=== PATIENT | female | born 1935 | race Caucasian/White ===

== ENCOUNTER → 2017-02-24 | Outpatient (CLI) | payer MEDICARE, OTHER ==
[2017-02-24 10:02] LABS: ABSOLUTE BASOPHILS # (AUTO) 0.1 10^3/uL (0.0-0.2); ABSOLUTE EOSINOPHILS # (AUTO) 0.4 10^3/uL (0.0-0.6); ABSOLUTE LYMPHOCYTES (AUTO) 1.3 10^3/uL (0.5-4.7); ABSOLUTE MONOCYTES (AUTO) 0.6 10^3/uL (0.1-1.4); ABSOLUTE NEUT (AUTO) 6.1 10^3/uL (1.7-8.2); BASOPHILS % (AUTO) 1.3 % (0-2); EOSINOPHILS % (AUTO) 4.8 % (0-6); HEMATOCRIT 42.3 % (36.0-47.0); HEMOGLOBIN 14.4 g/dL (12.0-15.5); HGB HCT DIFFERENCE 0.9; LYMPHOCYTES % (AUTO) 14.8 % (13-45); MEAN CORPUSCULAR HEMOGLOBIN 28.3 pg (27.0-33.4); MEAN CORPUSCULAR HGB CONC 34.1 g/dL (32.0-36.0); MEAN CORPUSCULAR VOLUME 83 fl (80-97); MONOCYTES % (AUTO) 7.5 % (3-13); RED BLOOD COUNT 5.08 10^6/uL (3.72-5.28); RED CELL DISTRIBUTION WIDTH 14.2 % (11.5-14.0); SEGMENTED NEUTROPHILS % (AUTO) 71.6 % (42-78); WHITE BLOOD COUNT 8.5 10^3/uL (4.0-10.5)
[2017-02-24 10:07] LABS: APPEARANCE,URINE CLEAR; BILIRUBIN,URINE NEGATIVE (NEGATIVE); GLUCOSE, URINE NEGATIVE (NEGATIVE); KETONES,URINE NEGATIVE (NEGATIVE); LEUKOCYTE ESTERASE,URINE LARGE (NEGATIVE); NITRITE,URINE NEGATIVE (NEGATIVE); PROTEIN,URINE NEGATIVE (NEGATIVE); URINE SPECIFIC GRAVITY 1.012; UROBILINOGEN,URINE NEGATIVE mg/dL (<2.0)
[2017-02-24 10:21] LABS: ALANINE AMINOTRANSFERASE 30 U/L (9-52); ALBUMIN 4.5 g/dL (3.5-5.0); ALKALINE PHOSPHATASE 72 U/L (38-126); ANION GAP 13 (5-19); ASPARTATE AMINO TRANSFERASE 32 U/L (14-36); BILIRUBIN,DIRECT 0.3 mg/dL (0.0-0.4); BILIRUBIN,TOTAL 0.7 mg/dL (0.2-1.3); BLOOD UREA NITROGEN 17 mg/dL (7-20); CALCIUM 9.9 mg/dL (8.4-10.2); CARBON DIOXIDE 31 mmol/L (22-30); CHLORIDE 100 mmol/L (98-107); CHOLESTEROL 152.43 mg/dL (0-200); Direct HDL 42 mg/dL (>40); GLUCOSE 92 mg/dL (75-110); POTASSIUM 4.6 mmol/L (3.6-5.0); SODIUM 144.3 mmol/L (137-145); TOTAL PROTEIN 7.5 g/dL (6.3-8.2); TRIGLYCERIDES 225 mg/dL (<150)
[2017-02-24 10:32] LABS: DIRECT LDL 68 mg/dL (<100)
== END ==
LOC: OD 08:26
PROVIDERS: ATTEND Internal Medicine
DX: R00.2 Palpitations (principal); R06.02 Shortness of breath; I25.2 Old myocardial infarction; E78.4 Other hyperlipidemia; I10 Essential (primary) hypertension; E11.9 Type 2 diabetes mellitus without complications; I47.1 Supraventricular tachycardia; I47.9 Paroxysmal tachycardia, unspecified; I34.0 Nonrheumatic mitral (valve) insufficiency; Z79.899 Other long term (current) drug therapy; R53.83 Other fatigue; N39.0 Urinary tract infection, site not specified
CPT/HCPCS: 36415; 80053; 80061; 81001; 83036; 83880; 84443; 85025; 87086; 87088; 87186

== ENCOUNTER → 2017-10-19 | Outpatient (CLI) | payer MEDICARE ==
--- NOTE | 2017-10-19 18:38 | XCELERA REPORT ---
[address] [address] Transthoracic Echocardiogram Report Name: RICKEY MONTANO Age: 81 yrs Gender: Female : 1935 Patient Status: Outpatient Patient Location: Study Date: 10/19/2017 01:01 PM Height: 65 in Weight: 196 lb BSA: 2.0 m2 Procedure: A two-dimensional transthoracic echocardiogram with color flow and Doppler was performed. Study Quality: Technically suboptimal. Reason For Study: SOB History: Shortness of breath. Ordering Physician: ALIE DAHL Performed By: Kandi Palmer Interpretation Summary The left ventricle is normal in size. Probably no LVH. LV EF is >60% Left ventricular systolic function is normal. Doppler measurements suggest normal left ventricular diastolic function The left ventricular wall motion is normal. There is no thrombus. The right ventricle is grossly normal size. The right ventricle is not well visualized secondary to technical limitations The right atrium is normal. The left atrium is mildly dilated. There is no evidence of mitral valve prolapse. There is no vegetation seen on the mitral valve. Calcified mitral apparatus causing mitral stenosis. There is mild mitral stenosis There is no mitral regurgitation noted. There is no aortic valve stenosis There is no LVOT obstruction. Mild Aortic Sclerosis. There is a mild amount of aortic regurgitation There is no tricuspid stenosis. No tricuspid regurgitation. Cannot assess RVSP due to lack of tricuspid jet. The pulmonic valve is not well visualized. The aortic root is not well visualized. There is no pericardial effusion. MMode/2D Measurements & Calculations RVDd: 2.4 cm LVIDd: 4.4 cm FS: 32.6 % Ao root diam: IVSd: 1.8 cm LVIDs: 3.0 cm EDV(Teich): 3.6 cm LVPWd: 1.1 cm 87.8 ml Ao root area: ESV(Teich): 34.1 ml 10.0 cm2 EF(Teich): LA dimension: 61.2 % 4.5 cm LVOT diam: 2.2 cm LA A2Cs: LA A4Cs: LA length: 6.8 cm LVOT area: 3.9 cm2 33.5 cm2 34.8 cm2 LA Vol Index (BP): LA Volume: 146.4 ml 74.6 ml/m2 Doppler Measurements & Calculations MV E max monika: MV P1/2t max monika: Ao V2 max: AI max monika: 133.8 cm/sec 132.8 cm/sec 142.8 cm/sec 352.3 cm/sec MV A max monika: MV P1/2t: 70.1 msec Ao max PG: AI max P.4 cm/sec MVA(P1/2t): 3.1 cm2 8.2 mmHg 49.6 mmHg MV E/A: 1.5 MV dec slope: HAILEY(V,D): AI dec slope: 3.4 cm2 176.4 cm/sec2 554.5 cm/sec2 AI P1/2t: 585.1 msec LV V1 max PG: PA V2 max: 6.2 mmHg 116.5 cm/sec LV V1 max: PA max P.4 mmHg 124.4 cm/sec Left Ventricle The left ventricle is normal in size. Probably no LVH. LV EF is >60%. Left ventricular systolic function is normal. Doppler measurements suggest normal left ventricular diastolic function. The left ventricular wall motion is normal. There is no thrombus. Right Ventricle The right ventricle is grossly normal size. The right ventricle is not well visualized secondary to technical limitations. Atria The right atrium is normal. The left atrium is mildly dilated. Mitral Valve Calcified mitral apparatus causing mitral stenosis. There is no evidence of mitral valve prolapse. There is no vegetation seen on the mitral valve. There is mild mitral stenosis. There is no mitral regurgitation noted. Aortic Valve There is no aortic valvular vegetation. There is no aortic valve stenosis. There is no LVOT obstruction. Mild Aortic Sclerosis. There is a mild amount of aortic regurgitation. Tricuspid Valve There is no tricuspid stenosis. No tricuspid regurgitation. Cannot assess RVSP due to lack of tricuspid jet. Pulmonic Valve The pulmonic valve is not well visualized. Great Vessels The aortic root is not well visualized. Effusions There is no pericardial effusion. : ALIE DAHL > Alie Dahl
== END ==
LOC: SP 12:42
PROVIDERS: ATTEND Specialist
DX: R06.02 Shortness of breath (principal)
CPT/HCPCS: 93306

== ENCOUNTER → 2017-10-27 | Outpatient (CLI) | payer MEDICARE, OTHER ==
[~2017-10-27] MED LIST: REGADENOSON INJ 0.4 MG/5 ML DISP.SYRIN IV ONE
--- NOTE | 2017-10-30 14:49 | DRAGON STRESS TEST REPORT ---
Intravenous Lexiscan Cardiolite stress test using single photon emmision computerized tomography. Date of procedure: 10/27/2017. Ordering Provider: Dr. Alie Villarreal. Patient's status: Out Patient Indication: Coronary artery disease, and abnormal EKG.. Coronary risk factors: Age, diabetes mellitus, and hypertension Resting EKG: Sinus Rhythm. LVH with strain pattern. Possible lateral wall ischemia. Stress EKG: No changes of ischemia. The patient had no chest pain or discomfort, and there were no arrhythmias seen. Reason for termination: Protocol. Conclusions: Normal EKG and hemodynamic response to IV Lexiscan. Nuclear data: At rest the patient was given 13.5 for millicuries of technetium 99m sestamibi injected intravenously. As per protocol rest non gated SPECT images were obtained. Subsequently the patient was given intravenous Lexiscan at a dose of 0.4 mg in 5 mL intravenously, followed by flush with normal saline. Subsequently the stress dose of 43.1 millicuries of technetium 99m sestamibi was injected intravenously. As per protocol stress gated images were obtained. Nuclear interpretation: Review of images showed that there is a perfusion defect involving part of the inferoseptum and the rest and stress images. This area is normal motion contraction and thickening by gated study. And hence this is soft tissue attenuation artifact. Also there is a perfusion defect involving the distal lateral wall in both the rest and stress images. This area also has normal motion contraction and thickening by gated study. The rest of the segments of the myocardium had normal perfusion at rest, and normal perfusion post stress with IV Lexiscan. All segments of the myocardium had normal motion, contraction, and thickening by gated study. T. I D. ratio was normal at 1.18. Computer read rest, and stress left ventricular ejection fraction were 53 %, and 48 %, respectively. Visually both the stress and rest ejection fractions were normal, and greater than 55%. Conclusion: 1. There is no scintigraphic evidence of Lexiscan induced myocardial ischemia. 2. There is no scintigraphic evidence of myocardial infarction/scar. 3. There is soft tissue attenuation artifact of the distal lateral wall and part of the inferoseptum. Recommendations: Aggressive risk factor modification, and treating the underlying co- morbidities. [facility]
== END ==
LOC: RAD 06:43
PROVIDERS: ATTEND Specialist
DX: I25.10 Atherosclerotic heart disease of native coronary artery without angina pectoris (principal)
CPT/HCPCS: 93017; 78452; A9500; J2785; Q9969

== ENCOUNTER 2017-11-10 08:09 | Day surgery (SDC) | payer MEDICARE, OTHER ==
[2017-10-29 10:40] LABS: HEMATOCRIT 41.5 % (36.0-47.0); HEMOGLOBIN 14.3 g/dL (12.0-15.5); HGB HCT DIFFERENCE 1.4; MEAN CORPUSCULAR HEMOGLOBIN 28.3 pg (27.0-33.4); MEAN CORPUSCULAR HGB CONC 34.5 g/dL (32.0-36.0); MEAN CORPUSCULAR VOLUME 82 fl (80-97); RED BLOOD COUNT 5.04 10^6/uL (3.72-5.28); RED CELL DISTRIBUTION WIDTH 14.5 % (11.5-14.0); WHITE BLOOD COUNT 8.5 10^3/uL (4.0-10.5)
[2017-10-29 11:06] LABS: ANION GAP 14 (5-19); BLOOD UREA NITROGEN 17 mg/dL (7-20); CALCIUM 9.7 mg/dL (8.4-10.2); CARBON DIOXIDE 26 mmol/L (22-30); CHLORIDE 103 mmol/L (98-107); CREATININE RESULT 0.78 mg/dL (0.52-1.25); GLUCOSE 114 mg/dL (75-110); POTASSIUM 4.7 mmol/L (3.6-5.0)
[~2017-11-10 08:09] MED LIST changes: +DEXAMETHASONE SOD PHOSPHATE INJ 4 MG/1 ML VIAL ONE; +DEXTROSE 5%-LACTATED RINGERS 1,000 ML IV PRN; +GLYCOPYRROLATE INJ 0.4 MG/2 ML VIAL ONE; +LACTATED RINGERS 1000 ML IV PRN; +LIDOCAINE 0.5% INJ-PF (5 MG/ML) 50 ML SDV SUBCUT PRN; +LIDOCAINE 1%/EPINEPHRINE INJ 20 ML VIAL ONE; +LIDOCAINE 2% INJ-PF (20 MG/ML) 2 ML AMPUL ONE; +METHYLENE BLUE 50 MG/10 ML AMPULE ONE; +MICROFIBRILLAR COLLAGEN 1 GM PACK ONE; +ONDANSETRON HCL INJ/PF 4 MG/2 ML SDV ONE; -REGADENOSON INJ 0.4 MG/5 ML DISP.SYRIN IV ONE; +SUCCINYLCHOLINE CHLORIDE INJ 200 MG/10 ML VIAL ONE
[2017-11-10] MEDS ORDERED: FENTANYL CITRATE INJ/PF 100 MCG/2 ML AMPUL ONE ×2 (10:27→13:01)
[2017-11-10] MEDS ORDERED: MIDAZOLAM 2 MG/2 ML INJ ONE (10:28)
[2017-11-10] MEDS ORDERED: PROPOFOL INJ 200 MG/20 ML VIAL IV ONE (10:28)
[2017-11-10] MEDS ORDERED: MORPHINE SULFATE 10 MG/ML INJ ONE (10:28)
[2017-11-10] MEDS ORDERED: CLINDAMYCIN 600 MG/D5W RTU 600 MG/50 ML RTUPB IV ONE (10:47)
[2017-11-10] MEDS ORDERED: PROMETHAZINE HCL INJ 25 MG/1 ML VIAL IV PRN (11:45)
[2017-11-10] MEDS ORDERED: MEPERIDINE HCL/PF INJ 25 MG/1 ML DISP.SYRIN IV PRN (11:45)
[2017-11-10] MEDS ORDERED: FENTANYL CITRATE INJ/PF 100 MCG/2 ML AMPUL IV PRN (11:45)
[2017-11-10] MEDS ORDERED: DIPHENHYDRAMINE HCL 50 MG/ML VIAL IV PRN (11:45)
--- NOTE | 2017-11-10 12:14 | Operative Report ---
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 Right mastectomy. 2. Methylene blue injection right breast SURGEON: SARTHAK LUTZ 1ST [employer]QUIPMENT INSPECTOR HELPER: BONNY BALDERAS ANESTHESIA: GA TISSUE REMOVED OR ALTERED: Right breast COMPLICATIONS: None ESTIMATED BLOOD LOSS: 50 cc INTRAOPERATIVE FINDINGS: See below PROCEDURE: Patient was seen in the preop holding area with the right breast was marked. She was then taken to the operating room and general anesthesia was induced. Right arm was abducted. We elected to proceed with total technique normal node mapping. We injected the right breast area Tay border 10 o'clock position with 3 cc of full-strength methylene blue in the intradermal position with 25-gauge needle. Right breast was massaged. The right breast and axilla were prepped and draped sterile fashion. Surgical plan and surgical timeout were repeated. Markings were made on the skin for a generous right breast mastectomy. Tumor was in the inferior aspect of the breast. There was a generalized thickened region extending from the 5:00 to the 8 o'clock position of the right breast approximately 5-7 cm from the nipple.. Inferior skin flaps were raised. The breast was taken off the chest wall from the infraclavicular region superiorly, the parasternal tissue, and the caudal end of these areas bilaterally we brought the tail of Lindo off of the latissimus dorsi muscle. We did not remove axillary contents. Breast was marked with a long suture in the lateral position short suture in the superior position and sent to pathology for permanent analysis. We investigated the axilla visually as well as with gentle spreading of the tissue. We did not see a blue node in the axilla after limited dissection. Because of the advanced age of the patient, with multiple morbidities, undergoing general anesthesia, I felt the most appropriate course of action at this point was to terminate the procedure having accomplished this simple mastectomy. A large Trevon drain was placed in the inferior lateral skin flaps secured to skin with 2-0 Prolene suture and the wound closed primarily with 2-0 Vicryl suture, and skin glue. Patient tolerated the procedure well, extubated, taken to the recovery room in stable condition. The physician welder assistant, Ms. Swartz, provided assistance during this case by: Assisting with retracting tissue, instillation of local anesthesia and closure of skin incisions.
[2017-11-10] MEDS ORDERED: DEXTROSE 5%-LACTATED RINGERS 1,000 ML IV PRN (12:28)
[2017-11-10] MEDS: FENTANYL CITRATE INJ/PF 100 MCG/2 ML AMPUL ONE ×2 (13:00→13:05)
[2017-11-10] MEDS ORDERED: KETOROLAC TROMETHAMINE 10 MG TABLET PO PRN (15:33)
[2017-11-10] MEDS ORDERED: GLUCAGON,HUMAN RECOMB 1 MG INJ IM PRN (15:58)
[2017-11-10] MEDS ORDERED: DEXTROSE 50%-WATER SYRINGE 25 GM/50 ML DOSE IV PRN (15:58)
[2017-11-10] MEDS ORDERED: DEXTROSE 50%-WATER SYRINGE 12.5 GM/25 ML DOSE IV PRN (15:58)
[2017-11-10] MEDS ORDERED: DEXTROSE 40% GEL 15 GM TUBE PO PRN (15:58)
[2017-11-10] MEDS ORDERED: DEXTROSE 40% GEL 15 GM TUBE X 2 PO PRN (15:58)
[2017-11-10] MEDS ORDERED: METOPROLOL TARTRATE 50 MG TABLET PO SCH (16:00)
[2017-11-10] MEDS: ACETAMINOPHEN 100 ML IV SCH (17:08)
[2017-11-10] MEDS ORDERED: PHENOL/SODIUM PHENOLATE 100 SPRAY/177 ML BOTTLE PO PRN (17:41)
[2017-11-10] MEDS ORDERED: ACETAMINOPHEN INJ/PF 1000 MG/100 ML SDV IV SCH (18:00)
[2017-11-10] MEDS: METOPROLOL TARTRATE 50 MG TABLET PO SCH (18:02)
[2017-11-10] MEDS: INSULIN LISPRO 100 UNIT/ML 3 ML VIAL SUBCUT PRN (21:29)
[2017-11-10] MEDS ORDERED: INSULIN GLARGINE,HUM.REC.ANLOG 1,000 UNIT/10 ML UNIT SUBCUT SCH (22:00)
[2017-11-10] MEDS ORDERED: INSULIN GLARGINE,HUM.REC.ANLOG 300 UNIT/3 ML INSULN.PEN SUBCUT SCH (22:00)
[2017-11-10] MEDS ORDERED: SIMVASTATIN 40 MG TABLET PO SCH (22:00)
[2017-11-11] MEDS: ACETAMINOPHEN 100 ML IV SCH ×3 (01:29→11:53)
[2017-11-11] MEDS: METOPROLOL TARTRATE 50 MG TABLET PO SCH (05:14)
[2017-11-11] MEDS ORDERED: LANSOPRAZOLE 30 MG TAB.RAP.DR PO SCH (06:00)
[2017-11-11] MEDS ORDERED: HYDROCHLOROTHIAZIDE 25 MG TABLET PO SCH (10:00)
[2017-11-11] MEDS ORDERED: HYDROCHLOROTHIAZIDE PO SCH (10:00)
[2017-11-11] MEDS ORDERED: INSULIN ASPART PROT SQ SCH (10:00)
[2017-11-11] MEDS ORDERED: MULTIVITAMIN TABLET PO SCH (10:00)
[2017-11-11] MEDS ORDERED: POTASSIUM CHLORIDE 10 MEQ TABLET.SA PO SCH (10:00)
[2017-11-11] MEDS ORDERED: ALPRAZOLAM 0.5 MG TABLET PO SCH (10:00)
[2017-11-11] MEDS ORDERED: (PENDING PHARMACY ID) (Omega-3 Fatty Acids/Fish Oil [Fish Oil 1,000 Mg Capsule] 1 EACH) PO SCH (10:00)
[2017-11-11] MEDS ORDERED: ASPIRIN 81 MG TABLET, ENT COATED PO SCH (10:00)
[2017-11-11] MEDS ORDERED: LOSARTAN POTASSIUM 50 MG TABLET PO SCH (10:00)
[2017-11-11] MEDS ORDERED: OMEGA-3 ACID ETHYL ESTERS 1 GM CAPSULE PO SCH (10:00)
[2017-11-11] MEDS ORDERED: CALCIUM CARBONATE 500 MG TABLET PO SCH (10:00)
[2017-11-11] MEDS ORDERED: SENNOSIDES/DOCUSATE 8.6-50 MG 1 EACH TABLET PO SCH (10:00)
[2017-11-11] MEDS ORDERED: INSULN ASP U SQ SCH (10:00)
[2017-11-11] MEDS ORDERED: [UNRECOGNIZED DRUG - OTHER] SQ SCH (10:00)
[2017-11-11] MEDS: INSULIN LISPRO 100 UNIT/ML 3 ML VIAL SUBCUT PRN (11:53)
--- NOTE | 2017-11-11 12:29 | DISCHARGE SUMMARY E ---
Discharge Summary NAME: RICKEY MONTANO : 1935 AGE: 82Y ADMITTED: 11/10/2017 DISCHARGED: 11/11/2017 SUMMARY OF HOSPITALIZATION: The patient is an 82-year-old white female with a remote history of left modified radical mastectomy was brought back to the operating room for right mastectomy by Dr. Gallegos. The procedure was performed on 11/10/2017. The patient was observed overnight. She did have a moderate amount of bleeding from her Trevon drain which eventually subsided. By the following morning she was getting about well, tolerating a regular diet and ready for discharge home. FINAL DIAGNOSIS: DCIS with invasive component, right breast, status post right mastectomy with drain placement, Dr. Gallegos. DISPOSITION: 1. The patient was discharged home to care of family. 2. Follow up with Dr. Gallegos in 1 week. 3. Shower. 4. Resume preoperative medications, diet and activity. DICTATING PHYSICIAN: SARTHAK GALLEGOS M.D. [id number] PHY#: [id number] [id number] JOB#: [id number] ACCT: [id number] cc:SARTHAK GALLEGOS M.D. >
[2017-11-11 13:23] VITALS: BP 147/45
--- NOTE | 2017-11-17 18:59 | WOMENS IMAGING REPORT ---
EXAM DESCRIPTION: BREAST SPECIMEN COMPLETED DATE/TIME: 11/10/2017 2:08 pm REASON FOR STUDY: RT BREAST CANCER C50.911 C50.911 MALIGNANT NEOPLASM OF UNSP SITE OF RIGHT FEMALE SERGIO COMPARISON: None. TECHNIQUE: Specimen radiograph from breast procedure performed in the operating room. Multiple path ology cassettes are submitted LIMITATIONS: None. FINDINGS: Specimen radiograph from breast procedure performed in the operating room. Please see procedure note for details and final pathology. IMPRESSION: Specimen radiograph. 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 Appropriate action should be taken. TECHNICAL DOCUMENTATION: JOB ID: [id number]
== END 2017-11-11 14:21 | disposition home or self-care (01) ==
LOC: OROUT 08:09 → 4S 13:43 → OROUT 11-11 14:21
PROVIDERS: ATTEND Surgery
PROC: 0HTT0ZZ Resection of Right Breast, Open Approach (ICD-10-PCS; principal; 2017-11-10 10:30)
DX: D05.11 Intraductal carcinoma in situ of right breast (principal); I10 Essential (primary) hypertension; E11.9 Type 2 diabetes mellitus without complications; E78.00 Pure hypercholesterolemia, unspecified; Z88.0 Allergy status to penicillin; Z88.5 Allergy status to narcotic agent; I25.2 Old myocardial infarction; Z86.73 Personal history of transient ischemic attack (TIA), and cerebral infarction without residual deficits; Z85.3 Personal history of malignant neoplasm of breast; Z79.899 Other long term (current) drug therapy; Z79.4 Long term (current) use of insulin; Z79.82 Long term (current) use of aspirin; Z99.81 Dependence on supplemental oxygen; M19.90 Unspecified osteoarthritis, unspecified site; E66.9 Obesity, unspecified; G47.30 Sleep apnea, unspecified
CPT/HCPCS: 36415 ×2; 82962; 84132; 85027; 80048; 88307 ×2; 76098; 19303; A9270 ×14; J2250; J1100; J3010; J0330; J2405; J2704; J0131 ×2; Q9968; J3490; 400; J1815; J2270

== ENCOUNTER 2017-11-12 03:22 | Inpatient (IN) | payer MEDICARE, OTHER ==
[2017-11-12] MEDS ORDERED: IPRATROPIUM/ALBUTEROL 0.5-2.5 MG/3 ML AMPUL NEB ONE ×3 (03:33→06:19)
[2017-11-12 03:58] LABS: ABSOLUTE BASOPHILS # (AUTO) 0.1 10^3/uL (0.0-0.2); ABSOLUTE EOSINOPHILS # (AUTO) 0.6 10^3/uL (0.0-0.6); ABSOLUTE LYMPHOCYTES (AUTO) 0.9 10^3/uL (0.5-4.7); ABSOLUTE MONOCYTES (AUTO) 1.5 10^3/uL (0.1-1.4); ABSOLUTE NEUT (AUTO) 13.7 10^3/uL (1.7-8.2); BASOPHILS % (AUTO) 0.3 % (0-2); EOSINOPHILS % (AUTO) 3.8 % (0-6); HEMATOCRIT 37.3 % (36.0-47.0); HEMOGLOBIN 12.4 g/dL (12.0-15.5); HGB HCT DIFFERENCE -0.1; LYMPHOCYTES % (AUTO) 5.3 % (13-45); MEAN CORPUSCULAR HEMOGLOBIN 27.8 pg (27.0-33.4); MEAN CORPUSCULAR HGB CONC 33.3 g/dL (32.0-36.0); MEAN CORPUSCULAR VOLUME 84 fl (80-97); MONOCYTES % (AUTO) 8.7 % (3-13); RED BLOOD COUNT 4.47 10^6/uL (3.72-5.28); RED CELL DISTRIBUTION WIDTH 14.7 % (11.5-14.0); SEGMENTED NEUTROPHILS % (AUTO) 81.9 % (42-78); WHITE BLOOD COUNT 16.7 10^3/uL (4.0-10.5)
--- NOTE | 2017-11-12 04:01 | RADIOLOGY REPORT (SQ) ---
EXAM DESCRIPTION: CHEST SINGLE VIEW CLINICAL HISTORY: sob COMPARISON: 08/11/2016 FINDINGS: Single frontal view of the chest. Atherosclerotic calcification aortic arch. Heart is enlarged. Bilateral axillary postoperative changes. Right midlung consolidation. Left lung linear interstitial opacities. No pneumothorax. Leads overlie the chest. No acute osseous abnormalities. Upper abdominal soft tissues are unremarkable. IMPRESSION: 1. Right midlung airspace opacity concerning for pneumonia.
[2017-11-12] MEDS ORDERED: LEVOFLOXACIN 750 MG/D5W RTU 750 MG/150 ML RTUPB IV ONE (04:07)
--- NOTE | 2017-11-12 04:27 | ER Document Report ---
ED General - General Chief Complaint: Shortness Of Breath Stated Complaint: POSSIBLE POST OP COMPLICATIONS Time Seen by Provider: 11/12/17 03:43 Information source: Patient, Relative - daughter TRAVEL OUTSIDE OF THE [place] IN LAST 30 DAYS: No - HPI Patient complains to provider of: cannot breathe Onset: Just prior to arrival Onset/Duration: Sudden Quality of pain: No pain Associated symptoms: Shortness of breath Exacerbated by: Movement Relieved by: Denies Similar symptoms previously: No Recently seen / treated by doctor: Yes - 11/10/2017 right mastectomy - Related Data Allergies/Adverse Reactions: morphine [Morphine] Allergy (Severe, Verified 10/29/17 09:43) Itch, diaphoresis Penicillins Allergy (Severe, Verified 10/29/17 09:43) Whelts, sickness Past Medical History - General Information source: Patient, Relative - Social History Smoking Status: Never Smoker Cigarette use (# per day): No Chew tobacco use (# tins/day): No Smoking Education Provided: No Frequency of alcohol use: None Drug Abuse: None Lives with: Family Family History: CAD Patient has suicidal ideation: No Patient has homicidal ideation: No - Past Medical History Cardiac Medical History: Reports: Hx Atrial Fibrillation, Hx Coronary Artery Disease, Hx Heart Attack - 2001, Hx Hypercholesterolemia, Hx Hypertension Pulmonary Medical History: Denies: Hx Asthma, Hx Bronchitis, Hx COPD, Hx Pneumonia Neurological Medical History: Reports: Hx Cerebrovascular Accident - 10/2011. Denies: Hx Seizures Endocrine Medical History: Reports: Hx Diabetes Mellitus Type 2 Malignancy Medical History: Reports: Hx Breast Cancer GI Medical History: Denies: Hx Hiatal Hernia, Hx Ulcer Musculoskeltal Medical History: Reports Hx Arthritis - ALL OVER Past Surgical History: Reports: Hx Cardiac Catheterization - cath and ablation, Hx Hysterectomy, Hx Mastectomy - LEFT CAN'T USE LEFT ARM, Hx Open Heart Surgery - ABLATION 13 PLACES , Hx Orthopedic Surgery - bilateral knee surgery - Immunizations Hx Diphtheria, Pertussis, Tetanus Vaccination: Yes Hx Pneumococcal Vaccination: 08/29/10 Review of Systems - Review of Systems Constitutional: No symptoms reported EENT: No symptoms reported Cardiovascular: Dyspnea Respiratory: Short of breath, Wheezing Gastrointestinal: No symptoms reported Genitourinary: No symptoms reported Female Genitourinary: No symptoms reported Musculoskeletal: No symptoms reported Skin: Other - surgical incision right breast area Neurological/Psychological: No symptoms reported Physical Exam - Vital signs Vitals: Resp Pulse Ox 30 H 79 L 11/12/17 03:22 11/12/17 03:22 Interpretation: Hypertensive, Hypoxic, Tachypneic - Notes Notes: PHYSICAL EXAMINATION: GENERAL: Elderly female sitting up in the gurney tachypneic with respiratory distress. HEAD: Atraumatic, normocephalic. EYES: Pupils equal round and reactive to light, extraocular movements intact, conjunctiva are normal. ENT: Nares patent, oropharynx clear without exudates. Moist mucous membranes. NECK: Normal range of motion, supple without lymphadenopathy. No JVD LUNGS: Breath sounds are coarse with decreased air exchange bilaterally and wheezing. HEART: Regular rate and rhythm CHEST: Ecchymosis over the bilateral chest area with a horizontal healing surgical incision. Positive ELIEZER drain from the right breast area. Serosanguineous drainage. Signs or symptoms of infection. ABDOMEN: Soft, nontender, nondistended abdomen. No guarding, no rebound. No masses appreciated. Female : deferred Musculoskeletal: Normal range of motion, no pitting or edema. No cyanosis. NEUROLOGICAL: Cranial nerves grossly intact. Normal speech. Normal sensory, motor exams PSYCH: Normal mood, normal affect. SKIN: Warm, Dry, normal turgor, no rashes or lesions noted. Course - Vital Signs Vital signs: Temp Pulse Resp BP Pulse Ox 26 H 227/57 H 96 11/12/17 04:01 11/12/17 04:01 11/12/17 04:01 - Laboratory Result Diagrams: 11/12/17 03:44 11/12/17 03:44 Laboratory results interpreted by me: 11/12/17 11/12/17 11/12/17 03:44 03:44 03:44 WBC 16.7 H RDW 14.7 H Plt Count 599 H Seg Neutrophils % 81.9 H Lymphocytes % 5.3 L Absolute Neutrophils 13.7 H Absolute Monocytes 1.5 H Glucose 247 H AST 61 H ALT 59 H NT-Pro-B Natriuret Pep 2080 H - Diagnostic Test Radiology results interpreted by me: 11/12/17 04:29 Cephalization with right upper lobe consolidation - EKG Interpretation by Nd EKG shows normal: Sinus rhythm - 79 Rate: Normal Rhythm: PVC's [place]/QRS: RBBB When compared to previous EKG there are: No significant change Discharge - Discharge Clinical Impression: Pulmonary edema, Uncontrolled diabetes mellitus Condition: Good Referrals: JUSTIN PIZARRO MD [Primary Care Provider] - Follow up as needed
[2017-11-12 04:34] LABS: PROTHROMBIN TIME 13.8 SEC (11.4-15.4)
[2017-11-12 04:41] LABS: TROPONIN I 0.092 ng/mL
[2017-11-12 04:54] LABS: ALANINE AMINOTRANSFERASE 59 U/L (9-52); ALBUMIN 3.7 g/dL (3.5-5.0); ALKALINE PHOSPHATASE 70 U/L (38-126); ANION GAP 12 (5-19); ASPARTATE AMINO TRANSFERASE 61 U/L (14-36); BILIRUBIN,DIRECT 0.3 mg/dL (0.0-0.4); BILIRUBIN,TOTAL 0.4 mg/dL (0.2-1.3); BLOOD UREA NITROGEN 19 mg/dL (7-20); CALCIUM 9.3 mg/dL (8.4-10.2); CARBON DIOXIDE 27 mmol/L (22-30); CHLORIDE 101 mmol/L (98-107); GLUCOSE 247 mg/dL (75-110); POTASSIUM 4.4 mmol/L (3.6-5.0); SODIUM 139.7 mmol/L (137-145); TOTAL PROTEIN 6.4 g/dL (6.3-8.2)
[2017-11-12] MEDS ORDERED: ACETAMINOPHEN 325 MG TABLET PO PRN (05:41)
[2017-11-12] MEDS ORDERED: GUAIFENESIN SYRP 200 MG/10 ML UDC PO PRN (05:41)
[2017-11-12] MEDS ORDERED: DEXTROSE 40% GEL 15 GM TUBE PO PRN ×2 (05:46)
[2017-11-12] MEDS ORDERED: DEXTROSE 50%-WATER 25 GM/50 ML DISP.SYRIN IV PRN ×2 (05:46)
[2017-11-12] MEDS ORDERED: INSULIN LISPRO 100 UNIT/ML 3 ML VIAL SUBCUT PRN (05:46)
[2017-11-12] MEDS ORDERED: GLUCAGON,HUMAN RECOMB 1 MG INJ IM PRN (05:46)
[2017-11-12 05:48] LABS: APPEARANCE,URINE SLIGHTLY-CLOUDY; BILIRUBIN,URINE NEGATIVE (NEGATIVE); GLUCOSE, URINE 50 mg/dL (NEGATIVE); KETONES,URINE NEGATIVE (NEGATIVE); LEUKOCYTE ESTERASE,URINE LARGE (NEGATIVE); NITRITE,URINE NEGATIVE (NEGATIVE); PROTEIN,URINE 100 mg/dL (NEGATIVE); URINE SPECIFIC GRAVITY 1.016; UROBILINOGEN,URINE NEGATIVE mg/dL (<2.0)
--- NOTE | 2017-11-12 06:15 | PDOC H&P ---
History of Present Illness Admission Date/PCP: JUSTIN PIZARRO, History of Present Illness: RICKEY MONTANO is a 82 year old female with an extensive past medical history who was recently admitted for and had a mastectomy on Wednesday. Patient was discharged from the hospital yesterday. Admittedly she was not feeling quite 100% when she went to sleep. But she woke up and when she went to the bathroom became acutely short of breath, diaphoretic, pale. Patient reports that prior to her surgery she had rhinorrhea which was clear and felt as though she was developing a cold. Patient reports a cough but denies any sputum production. Patient was found in the emergency department to be acutely hypoxic and tachypneic. Patient was initially started on oxygen and given breathing treatments with improvement of her symptomatology. Patient reports that she underwent stress test and cardiology clearance prior to her surgery. She is referred to the hospitalist service for pneumonia. Past Medical History Cardiac Medical History: Reports: Atrial Fibrillation, Coronary Artery Disease, Myocardial Infarction - 2001, Hyperlipidema, Hypertension Pulmonary Medical History: Denies: Asthma, Bronchitis, Chronic Obstructive Pulmonary Disease (COPD), Pneumonia EENT Medical History: Reports: Cataracts Neurological Medical History: Denies: Seizures Endocrine Medical History: Reports: Diabetes Mellitus Type 2 Malignancy Medical History: Reports: Breast Cancer, Ovarian Cancer GI Medical History: Reports: Gastroesophageal Reflux Disease Denies: Hiatal Hernia Musculoskeltal Medical History: Reports: Arthritis - ALL OVER Hematology: Reports: Anemia - YEARS AGO Denies: Sickle Cell Disease Past Surgical History Past Surgical History: Reports: Cardiac Catheterization - cath and ablation, Hysterectomy, Mastectomy - LEFT CAN'T USE LEFT ARM, Orthopedic Surgery - bilateral knee surgery Denies: Amputation Social History Lives with: Family Smoking Status: Never Smoker Frequency of Alcohol Use: None Hx Recreational Drug Use: No Hx Prescription Drug Abuse: No - Advance Directive Resuscitation Status: Do Not Resuscitate Surrogate healthcare decision maker:: Daughter, Jenny Family History Family History: CAD, Malignancy Parental Family History Reviewed: Yes Children Family History Reviewed: Yes Sibling(s) Family History Reviewed.: Yes Medication/Allergy Home Medications: Alprazolam 0.5 mg PO DAILY 10/29/17 Aspirin [Aspirin EC] 81 mg PO DAILY 10/29/17 Calcium Carbonate [Calcium] 500 mg PO DAILY 10/29/17 Hydrochlorothiazide 40 mg PO DAILY 10/29/17 Insulin Aspart Prot/Insuln Asp [Novolog Mix 70-30 Flexpen Syrn] 4 unit SQ DAILY 10/29/17 Insulin Glargine,Hum.rec.anlog [Lantus] 50 unit SQ QHS 10/29/17 Losartan Potassium 50 mg PO DAILY 10/29/17 Metoprolol Tartrate [Lopressor 50 mg Tablet] 50 mg PO Q12H 10/29/17 Multivitamin [Daily Multiple Vitamin] 1 tab PO DAILY 10/29/17 [place]-3 Fatty Acids/Fish Oil [Fish Oil 1,000 mg Capsule] 1 each PO DAILY Pantoprazole Sodium 40 mg PO DAILY 10/29/17 Potassium Chloride 10 meq PO DAILY 10/29/17 Sennosides/Docusate Sodium [Stool Softener Tablet] 1 each PO DAILY 10/29/17 Simvastatin 40 mg PO QHS 10/29/17 Allergies/Adverse Reactions: morphine [Morphine] Allergy (Severe, Verified 10/29/17 09:43) Itch, diaphoresis Penicillins Allergy (Severe, Verified 10/29/17 09:43) Whelts, sickness Review of Systems Constitutional: ABSENT: chills, fever(s), headache(s), weight gain, weight loss Eyes: ABSENT: visual disturbances Ears: ABSENT: hearing changes Cardiovascular: PRESENT: dyspnea on exertion, edema. ABSENT: chest pain, orthropnea, palpitations Respiratory: PRESENT: cough, dyspnea. ABSENT: hemoptysis, sputum Gastrointestinal: ABSENT: abdominal pain, constipation, diarrhea, hematemesis, hematochezia, nausea, vomiting Genitourinary: ABSENT: dysuria, hematuria Musculoskeletal: ABSENT: joint swelling Integumentary: ABSENT: rash, wounds Neurological: ABSENT: abnormal gait, abnormal speech, confusion, dizziness, focal weakness, syncope Psychiatric: ABSENT: anxiety, depression, homidical ideation, suicidal ideation Endocrine: ABSENT: cold intolerance, heat intolerance, polydipsia, polyuria Hematologic/Lymphatic: ABSENT: easy bleeding, easy bruising Physical Exam Vital Signs: Temp Pulse Resp BP Pulse Ox 15 146/73 H 97 11/12/17 05:12 11/12/17 05:12 11/12/17 05:16 Intake & Output 11/10/17 11/11/17 11/12/17 06:59 06:59 06:59 Output Total 278 Balance -278 Weight 90 kg General appearance: PRESENT: mild distress, well-developed, well-nourished Head exam: PRESENT: atraumatic, normocephalic Eye exam: PRESENT: conjunctiva pink, EOMI, PERRLA. ABSENT: scleral icterus Ear exam: PRESENT: normal external ear exam Mouth exam: PRESENT: moist, tongue midline Neck exam: ABSENT: JVD, lymphadenopathy, thyromegaly, tracheal deviation Respiratory exam: PRESENT: rhonchi, symmetrical, unlabored, wheezes. ABSENT: crackles, rales, tachypnea Cardiovascular exam: PRESENT: RRR, +S1, +S2, systolic murmur. ABSENT: diastolic murmur, rubs Pulses: PRESENT: normal dorsalis pedis pul Vascular exam: PRESENT: normal capillary refill GI/Abdominal exam: PRESENT: hypoactive bowel sounds, soft. ABSENT: distended, guarding, mass, Joseph's sign, organolmegaly, rebound, tenderness Rectal exam: PRESENT: deferred Extremities exam: PRESENT: full ROM, +1 edema. ABSENT: calf tenderness, clubbing Neurological exam: PRESENT: alert, awake, oriented to person, oriented to place , oriented to time, oriented to situation, CN II-XII grossly intact. ABSENT: motor sensory deficit Psychiatric exam: PRESENT: appropriate affect, normal mood. ABSENT: homicidal ideation, suicidal ideation Skin exam: PRESENT: dry, warm. ABSENT: cyanosis, intact - Fresh mastectomy area on right upper chest, well approximated, bruised, rash Results Laboratory Results: 11/12/17 03:44 11/12/17 03:44 11/12/17 11/12/17 11/12/17 03:44 03:44 03:44 WBC 16.7 H RBC 4.47 Hgb 12.4 Hct 37.3 MCV 84 MCH 27.8 MCHC 33.3 RDW 14.7 H Plt Count 599 H Seg Neutrophils % 81.9 H Lymphocytes % 5.3 L Monocytes % 8.7 Eosinophils % 3.8 Basophils % 0.3 Absolute Neutrophils 13.7 H Absolute Lymphocytes 0.9 Absolute Monocytes 1.5 H Absolute Eosinophils 0.6 Absolute Basophils 0.1 Sodium 139.7 Potassium 4.4 Chloride 101 Carbon Dioxide 27 Anion Gap 12 BUN 19 Creatinine 0.90 Est GFR ( Amer) > 60 Est GFR (Non-Af Amer) > 60 Glucose 247 H Calcium 9.3 Magnesium 1.6 Total Bilirubin 0.4 AST 61 H ALT 59 H Alkaline Phosphatase 70 Total Protein 6.4 Albumin 3.7 Urine Color Urine Appearance Urine pH Ur Specific [place] Urine Protein Urine Glucose (UA) Urine Ketones Urine Blood Urine Nitrite Ur Leukocyte Esterase Urine WBC (Auto) Urine RBC (Auto) 11/12/17 05:05 WBC RBC Hgb Hct MCV MCH MCHC RDW Plt Count Seg Neutrophils % Lymphocytes % Monocytes % Eosinophils % Basophils % Absolute Neutrophils Absolute Lymphocytes Absolute Monocytes Absolute Eosinophils Absolute Basophils Sodium Potassium Chloride Carbon Dioxide Anion Gap BUN Creatinine Est GFR ( Amer) Est GFR (Non-Af Amer) Glucose Calcium Magnesium Total Bilirubin AST ALT Alkaline Phosphatase Total Protein Albumin Urine Color YELLOW Urine Appearance SLIGHTLY-CLOUDY Urine pH 5.0 Ur Specific [place] 1.016 Urine Protein 100 H Urine Glucose (UA) 50 H Urine Ketones NEGATIVE Urine Blood NEGATIVE Urine Nitrite NEGATIVE Ur Leukocyte Esterase LARGE H Urine WBC (Auto) 161 Urine RBC (Auto) 6 11/12/17 03:44 Troponin I 0.092 NT-Pro-B Natriuret Pep 2080 H Impressions: Chest X-Ray 11/12/17 03:43 IMPRESSION: 1. Right midlung airspace opacity concerning for pneumonia. Status: Imported from PACS Assessment & Plan - Diagnosis (1) Pneumonia of right middle lobe due to infectious organism Is this a current diagnosis for this admission?: Yes Plan: Patient appears to have a right middle lobe pneumonia. Due to her penicillin allergy we will start her on Levaquin alone. Place patient on scheduled nebulized treatments and re-evaluate for improvement. 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 ADA diet Sliding scale insulin (4) Breast cancer Qualifiers: Breast location: unspecified site of breast Estrogen receptor status: unspecified Patient sex: female Laterality: bilateral Qualified Code(s): C50.911 - Malignant neoplasm of unspecified site of right female breast; C50.912 - Malignant neoplasm of unspecified site of left female breast; C50.912 - Malignant neoplasm of unspecified site of left female breast; C50.912 - Malignant neoplasm of unspecified site of left female breast; C50.912 - Malignant neoplasm of unspecified site of left female breast Is this a current diagnosis for this admission?: Yes Plan: Defer to her primary and oncology. Will ask that surgery see patient while here (5) Hypertension Qualifiers: Hypertension type: essential hypertension Qualified Code(s): I10 - Essential (primary) hypertension Is this a current diagnosis for this admission?: Yes Plan: Continue losartan - Time Time Spent: 30 to 50 Minutes Medications reviewed and adjusted accordingly: Yes Anticipated discharge: Home with Homehealth - Inpatient Certification Based on my medical assessment, after consideration of the patient's comorbidities, presenting symptoms, or acuity I expect that the services needed warrant INPATIENT care.: Yes I certify that my determination is in accordance with my understanding of Medicare's requirements for reasonable and necessary INPATIENT services [42 CFR 412.3e].: Yes Medical Necessity: Need for Nebulizer Therapy and Monitoring of Response, Need for IV Antibiotics, Risk of Complication if Not Cared For in Hospital Post Hospital Care: D/C Taxi Proprietor Documentation
--- NOTE | 2017-11-12 06:46 | EKG REPORT ---
SEVERITY:- ABNORMAL ECG - SINUS RHYTHM LVH WITH IVCD, LAD AND SECONDARY REPOL ABNRM LATERAL INFARCT, AGE INDETERMINATE : Confirmed by: Sofia Macdonald 12-Nov-2017 06:46:15
[2017-11-12] MEDS: HEPARIN SOD (PORCINE) 5,000 UNIT/ML 1 ML SYRINGE SUBCUT SCH ×3 (07:47→22:54)
[2017-11-12] MEDS: METOPROLOL TARTRATE 50 MG TABLET PO SCH ×2 (07:48→18:14)
[2017-11-12] MEDS: IPRATROPIUM/ALBUTEROL 0.5-2.5 MG/3 ML AMPUL NEB SCH ×3 (08:32→19:57)
[2017-11-12] MEDS: CALCIUM CARBONATE 500 MG TABLET PO SCH (09:07)
[2017-11-12] MEDS: ALPRAZOLAM 0.5 MG TABLET PO SCH (09:07)
[2017-11-12] MEDS: ASPIRIN 81 MG TABLET, ENT COATED PO SCH (09:07)
[2017-11-12] MEDS: GUAIFENESIN 600 MG TABLET.SA PO SCH ×2 (09:08→22:53)
[2017-11-12] MEDS: LOSARTAN POTASSIUM 50 MG TABLET PO SCH (09:09)
[2017-11-12] MEDS: MAGNESIUM OXIDE 400 MG TABLET PO SCH ×2 (09:10→18:15)
[2017-11-12] MEDS: MULTIVITAMIN TABLET PO SCH (09:11)
[2017-11-12] MEDS: OMEGA-3 ACID ETHYL ESTERS 1 GM CAPSULE PO SCH (09:11)
[2017-11-12] MEDS: SENNOSIDES/DOCUSATE 8.6-50 MG 1 EACH TABLET PO SCH (09:12)
[2017-11-12] MEDS ORDERED: (PENDING PHARMACY ID) (Omega-3 Fatty Acids/Fish Oil [Fish Oil 1,000 Mg Capsule] 1 EACH) PO SCH (10:00)
[2017-11-12] MEDS ORDERED: INSULIN GLARGINE,HUM.REC.ANLOG 1,000 UNIT/10 ML UNIT SUBCUT SCH (22:00)
[2017-11-12] MEDS: INSULIN GLARGINE,HUM.REC.ANLOG 1,000 UNIT/10 ML UNIT SUBCUT SCH (22:54)
[2017-11-12] MEDS: SIMVASTATIN 40 MG TABLET PO SCH (22:54)
[2017-11-13] MEDS: IPRATROPIUM/ALBUTEROL 0.5-2.5 MG/3 ML AMPUL NEB SCH ×4 (01:38→19:52)
[2017-11-13 05:18] LABS: ABSOLUTE BASOPHILS # (AUTO) 0.1 10^3/uL (0.0-0.2); ABSOLUTE EOSINOPHILS # (AUTO) 0.8 10^3/uL (0.0-0.6); ABSOLUTE LYMPHOCYTES (AUTO) 1.3 10^3/uL (0.5-4.7); ABSOLUTE MONOCYTES (AUTO) 0.9 10^3/uL (0.1-1.4); ABSOLUTE NEUT (AUTO) 6.2 10^3/uL (1.7-8.2); BASOPHILS % (AUTO) 0.9 % (0-2); EOSINOPHILS % (AUTO) 8.9 % (0-6); HEMATOCRIT 32.7 % (36.0-47.0); HEMOGLOBIN 10.8 g/dL (12.0-15.5); HGB HCT DIFFERENCE -0.3; LYMPHOCYTES % (AUTO) 13.8 % (13-45); MEAN CORPUSCULAR VOLUME 82 fl (80-97); MONOCYTES % (AUTO) 9.8 % (3-13); RED CELL DISTRIBUTION WIDTH 14.9 % (11.5-14.0); SEGMENTED NEUTROPHILS % (AUTO) 66.6 % (42-78); WHITE BLOOD COUNT 9.3 10^3/uL (4.0-10.5)
[2017-11-13 05:33] LABS: ANION GAP 8 (5-19); BLOOD UREA NITROGEN 14 mg/dL (7-20); CALCIUM 8.5 mg/dL (8.4-10.2); CARBON DIOXIDE 31 mmol/L (22-30); CHLORIDE 103 mmol/L (98-107); CREATININE RESULT 0.73 mg/dL (0.52-1.25); GLUCOSE 106 mg/dL (75-110); POTASSIUM 3.8 mmol/L (3.6-5.0); SODIUM 141.6 mmol/L (137-145)
[2017-11-13] MEDS ORDERED: LEVOFLOXACIN 750 MG/D5W RTU 750 MG/150 ML RTUPB IV SCH (06:00)
[2017-11-13] MEDS: LANSOPRAZOLE 30 MG TAB.RAP.DR PO SCH (06:35)
[2017-11-13] MEDS: METOPROLOL TARTRATE 50 MG TABLET PO SCH ×2 (06:35→18:39)
[2017-11-13] MEDS: HEPARIN SOD (PORCINE) 5,000 UNIT/ML 1 ML SYRINGE SUBCUT SCH ×3 (06:37→22:05)
[2017-11-13] MEDS: CALCIUM CARBONATE 500 MG TABLET PO SCH (09:36)
[2017-11-13] MEDS: SENNOSIDES/DOCUSATE 8.6-50 MG 1 EACH TABLET PO SCH (09:36)
[2017-11-13] MEDS: MULTIVITAMIN TABLET PO SCH (09:36)
[2017-11-13] MEDS: ALPRAZOLAM 0.5 MG TABLET PO SCH (09:36)
[2017-11-13] MEDS: GUAIFENESIN 600 MG TABLET.SA PO SCH ×2 (09:37→22:01)
[2017-11-13] MEDS: ASPIRIN 81 MG TABLET, ENT COATED PO SCH (09:37)
[2017-11-13] MEDS: MAGNESIUM OXIDE 400 MG TABLET PO SCH ×2 (09:38→18:40)
[2017-11-13] MEDS: LOSARTAN POTASSIUM 50 MG TABLET PO SCH (09:39)
[2017-11-13] MEDS: OMEGA-3 ACID ETHYL ESTERS 1 GM CAPSULE PO SCH (09:40)
[2017-11-13] MEDS: SIMVASTATIN 40 MG TABLET PO SCH (22:02)
[2017-11-13] MEDS: INSULIN GLARGINE,HUM.REC.ANLOG 1,000 UNIT/10 ML UNIT SUBCUT SCH (22:06)
[2017-11-13] MEDS ORDERED: ALPRAZOLAM 0.5 MG TABLET PO ONE (22:30)
[2017-11-14] MEDS: IPRATROPIUM/ALBUTEROL 0.5-2.5 MG/3 ML AMPUL NEB SCH ×4 (02:05→20:02)
[2017-11-14] MEDS: METOPROLOL TARTRATE 50 MG TABLET PO SCH ×2 (06:15→17:36)
[2017-11-14] MEDS: LANSOPRAZOLE 30 MG TAB.RAP.DR PO SCH (06:17)
[2017-11-14] MEDS: HEPARIN SOD (PORCINE) 5,000 UNIT/ML 1 ML SYRINGE SUBCUT SCH ×3 (06:17→22:13)
[2017-11-14] MEDS: LEVOFLOXACIN 750 MG TABLET PO SCH (09:37)
[2017-11-14] MEDS: SENNOSIDES/DOCUSATE 8.6-50 MG 1 EACH TABLET PO SCH (09:37)
[2017-11-14] MEDS: ALPRAZOLAM 0.5 MG TABLET PO SCH (09:38)
[2017-11-14] MEDS: MAGNESIUM OXIDE 400 MG TABLET PO SCH ×2 (09:38→17:36)
[2017-11-14] MEDS: GUAIFENESIN 600 MG TABLET.SA PO SCH ×2 (09:38→22:12)
[2017-11-14] MEDS: OMEGA-3 ACID ETHYL ESTERS 1 GM CAPSULE PO SCH (09:39)
[2017-11-14] MEDS: LOSARTAN POTASSIUM 50 MG TABLET PO SCH (09:40)
[2017-11-14] MEDS: MULTIVITAMIN TABLET PO SCH (09:40)
[2017-11-14] MEDS: ASPIRIN 81 MG TABLET, ENT COATED PO SCH (09:40)
[2017-11-14] MEDS: CALCIUM CARBONATE 500 MG TABLET PO SCH (09:40)
--- NOTE | 2017-11-14 11:41 | PDOC PROGRESS REPORT ---
Subjective Progress Note for:: 11/13/17 Subjective:: 82-year-old female with past medical history of Atrial fibrillation Coronary artery disease myocardial infarction in 2001 Hypertension Hyperlipidemia Diabetes Ovarian cancer Breast cancer status post mastectomy on November 10 after which she was discharged to the hospital on the . She presented back to the hospital on November 12 feeling short of breath and was sweaty and very anxious. Emergency room the patient was found to be hypoxic and tachypneic was given nebulizer treatments and was put on oxygen. She did have a normal stress test and was cleared by cardiology prior to surgery per report. Patient was diagnosed as right middle lobe pneumonia and started on antibiotics and nebulizer treatments. Feels well. No complaints at present Reason For Visit: ACUTE HYPOXEMIC RESPIRATORY FAILURE PNEUMONIA Physical Exam Vital Signs: Temp Pulse Resp BP Pulse Ox 99.0 F 64 16 138/62 H 99 11/13/17 07:16 11/13/17 07:16 11/13/17 07:16 11/13/17 07:16 11/13/17 07:16 Intake & Output 11/12/17 11/13/17 11/14/17 06:59 06:59 06:59 Intake Total 735 Output Total 60 Balance 675 Weight 91.5 kg Additional comments: Elderly female sitting comfortably in bed not in acute distress HEENT: Pupils equal reactive to light moist pink oropharyngeal mucosa, normal external ears and nose Lungs: Coarse breath sounds on the right scattered rhonchi heard, no wheezing, normal respiratory effort Chest wall: Right-sided mastectomy with a surgical drain draining sanguinous fluid Cardiac: S1-S2 regular no peripheral edema no cyanosis no calf tenderness Skin: Warm and dry Abdomen: Soft, no focal tenderness, obese, normal bowel sounds Neurologic: Awake and alert oriented 3 Results Laboratory Results: 11/13/17 04:13 11/13/17 04:13 11/13/17 11/13/17 04:13 04:13 WBC 9.3 RBC 4.00 Hgb 10.8 L Hct 32.7 L MCV 82 MCH 27.0 MCHC 33.0 RDW 14.9 H Plt Count 429 Seg Neutrophils % 66.6 Lymphocytes % 13.8 Monocytes % 9.8 Eosinophils % 8.9 H Basophils % 0.9 Absolute Neutrophils 6.2 Absolute Lymphocytes 1.3 Absolute Monocytes 0.9 Absolute Eosinophils 0.8 H Absolute Basophils 0.1 Sodium 141.6 Potassium 3.8 Chloride 103 Carbon Dioxide 31 H Anion Gap 8 BUN 14 Creatinine 0.73 Est GFR ( Amer) > 60 Est GFR (Non-Af Amer) > 60 Glucose 106 Calcium 8.5 11/13/17 04:13 NT-Pro-B Natriuret Pep 3060 H Impressions: Chest X-Ray 11/12/17 03:43 IMPRESSION: 1. Right midlung airspace opacity concerning for pneumonia. Assessment & Plan - Diagnosis (1) Acute hypoxemic respiratory failure Is this a current diagnosis for this admission?: Yes (2) Hypertension Qualifiers: Hypertension type: essential hypertension Qualified Code(s): I10 - Essential (primary) hypertension Is this a current diagnosis for this admission?: Yes (3) Pneumonia of right middle lobe due to infectious organism Is this a current diagnosis for this admission?: Yes - Time Time Spent with patient: 25-34 minutes - Plan Summary Plan Summary: Day 2 of levofloxacin Continue losartan and metoprolol. Xanax for anxiety. Supplemental oxygen and nebulizer treatments and respiratory care.
--- NOTE | 2017-11-14 11:46 | PDOC PROGRESS REPORT ---
Subjective Progress Note for:: 11/14/17 Subjective:: 82-year-old female with past medical history of Atrial fibrillation Coronary artery disease myocardial infarction in 2001 Hypertension Hyperlipidemia Diabetes Ovarian cancer Breast cancer status post mastectomy on November 10 after which she was discharged to the hospital on the . She presented back to the hospital on November 12 feeling short of breath and was sweaty and very anxious. In the emergency room the patient was found to be hypoxic and tachypneic was given nebulizer treatments and was put on oxygen. She was diagnosed as right middle lobe pneumonia and started on antibiotics and nebulizer treatments. The patient reports constipation. Shortness of breath and cough have improved. No other complaints at present. Reason For Visit: ACUTE HYPOXEMIC RESPIRATORY FAILURE PNEUMONIA Physical Exam Vital Signs: Temp Pulse Resp BP Pulse Ox 98.4 F 71 16 169/56 H 97 11/14/17 08:11 11/14/17 08:16 11/14/17 08:16 11/14/17 08:11 11/14/17 08:11 Intake & Output 11/13/17 11/14/17 11/15/17 06:59 06:59 06:59 Intake Total 735 1358 Output Total 60 180 Balance 675 1178 Weight 91.5 kg 92.3 kg Additional comments: Elderly female sitting in bed, appears comfortable HEENT: Pupils equal reactive to light moist pink oropharyngeal mucosa, normal external ears and nose Lungs: Coarse breath sounds on the right scattered rhonchi heard, no wheezing, normal respiratory effort Chest wall: Right-sided mastectomy with a surgical drain draining sanguinous fluid Cardiac: S1-S2 regular no peripheral edema no cyanosis no calf tenderness Abdomen: Soft, no focal tenderness, obese, normal bowel sounds Neurologic: Awake and alert oriented 3 Skin: Warm and dry Results Laboratory Results: 11/13/17 04:13 11/13/17 04:13 11/13/17 04:13 NT-Pro-B Natriuret Pep 3060 H Impressions: Chest X-Ray 11/12/17 03:43 IMPRESSION: 1. Right midlung airspace opacity concerning for pneumonia. Assessment & Plan - Diagnosis (1) Pneumonia of right middle lobe due to infectious organism Is this a current diagnosis for this admission?: Yes (3) Acute hypoxemic respiratory failure Is this a current diagnosis for this admission?: Yes (4) Breast cancer Qualifiers: Patient sex: female Laterality: right Is this a current diagnosis for this admission?: Yes (5) Diabetes mellitus Qualifiers: Diabetes mellitus type: type 2 Diabetes mellitus complication status: with unspecified complications Diabetes mellitus senior living insulin use: with dedicated intermodal truck driver use Qualified Code(s): E11.8 - Type 2 diabetes mellitus with unspecified complications; Z79.4 - long term care administrator (current) use of insulin; Z79.4 - [facility] ( current) use of insulin; Z79.4 - long term care administrator (current) use of insulin; Z79.4 - [facility] (current) use of insulin Is this a current diagnosis for this admission?: Yes (6) Hypertension Qualifiers: Hypertension type: essential hypertension Qualified Code(s): I10 - Essential (primary) hypertension Is this a current diagnosis for this admission?: Yes - Time Time Spent with patient: 15-24 minutes - Plan Summary Plan Summary: Day 3 of antibiotics. Levaquin has been switched to p.o. We will order her another laxative. Out of bed, physical therapy
[2017-11-14] MEDS ORDERED: BISACODYL 5 MG TABEC PO ONE (13:00)
[2017-11-14] MEDS: SIMVASTATIN 40 MG TABLET PO SCH (22:12)
[2017-11-14] MEDS: INSULIN GLARGINE,HUM.REC.ANLOG 1,000 UNIT/10 ML UNIT SUBCUT SCH (22:13)
[2017-11-15] MEDS: IPRATROPIUM/ALBUTEROL 0.5-2.5 MG/3 ML AMPUL NEB SCH ×2 (02:08→07:51)
[2017-11-15] MEDS: METOPROLOL TARTRATE 50 MG TABLET PO SCH (05:45)
[2017-11-15] MEDS: LANSOPRAZOLE 30 MG TAB.RAP.DR PO SCH (05:46)
[2017-11-15] MEDS: HEPARIN SOD (PORCINE) 5,000 UNIT/ML 1 ML SYRINGE SUBCUT SCH (05:47)
[2017-11-15 05:53] LABS: ABSOLUTE BASOPHILS # (AUTO) 0.1 10^3/uL (0.0-0.2); ABSOLUTE EOSINOPHILS # (AUTO) 0.8 10^3/uL (0.0-0.6); ABSOLUTE LYMPHOCYTES (AUTO) 1.3 10^3/uL (0.5-4.7); ABSOLUTE MONOCYTES (AUTO) 0.8 10^3/uL (0.1-1.4); ABSOLUTE NEUT (AUTO) 5.2 10^3/uL (1.7-8.2); BASOPHILS % (AUTO) 1.1 % (0-2); EOSINOPHILS % (AUTO) 9.5 % (0-6); HEMATOCRIT 34.1 % (36.0-47.0); HEMOGLOBIN 11.5 g/dL (12.0-15.5); HGB HCT DIFFERENCE 0.4; LYMPHOCYTES % (AUTO) 15.9 % (13-45); MEAN CORPUSCULAR HEMOGLOBIN 27.9 pg (27.0-33.4); MEAN CORPUSCULAR HGB CONC 33.7 g/dL (32.0-36.0); MEAN CORPUSCULAR VOLUME 83 fl (80-97); MONOCYTES % (AUTO) 10.1 % (3-13); RED BLOOD COUNT 4.11 10^6/uL (3.72-5.28); RED CELL DISTRIBUTION WIDTH 14.6 % (11.5-14.0); SEGMENTED NEUTROPHILS % (AUTO) 63.4 % (42-78); WHITE BLOOD COUNT 8.2 10^3/uL (4.0-10.5)
[2017-11-15 06:17] LABS: ANION GAP 8 (5-19); BLOOD UREA NITROGEN 13 mg/dL (7-20); CALCIUM 8.9 mg/dL (8.4-10.2); CARBON DIOXIDE 30 mmol/L (22-30); CHLORIDE 102 mmol/L (98-107); CREATININE RESULT 0.73 mg/dL (0.52-1.25); GLUCOSE 112 mg/dL (75-110); MAGNESIUM 2.3 mg/dL (1.6-2.3); PHOSPHORUS 4.3 mg/dL (2.5-4.5); POTASSIUM 4.4 mmol/L (3.6-5.0); SODIUM 139.5 mmol/L (137-145)
--- NOTE | 2017-11-15 08:21 | PDOC DISCHARGE SUMMARY ---
General - Admit/Disc Date/PCP Admission Date/Primary Care Provider: 11/12/17 05:41 JUSTIN PIZARRO, Discharge Date: 11/15/17 - Discharge Diagnosis (1) Acute hypoxemic respiratory failure Is this a current diagnosis for this admission?: Yes Summary: Discharge home to continue home O2. Continue incentive spirometry and antibiotics (2) Breast cancer Is this a current diagnosis for this admission?: Yes Summary: Continue local skin care at the site of mastectomy. Home health to evaluate the amount of drainage. Follow-up with Dr. Gallegos (3) Pneumonia of right middle lobe due to infectious organism Is this a current diagnosis for this admission?: Yes Summary: Continue 5 days more of Levaquin - Additional Information Resuscitation Status: Do Not Resuscitate Discharge Diet: As Tolerated Discharge Activity: Activity As Tolerated Prescriptions: Levofloxacin [Levaquin 750 mg Tablet] 500 mg PO DAILY #5 tablet Home Medications: Alprazolam 0.5 mg PO DAILY 10/29/17 Aspirin [Aspirin EC] 81 mg PO DAILY 10/29/17 Calcium Carbonate [Calcium] 500 mg PO DAILY 10/29/17 Hydrochlorothiazide 40 mg PO DAILY 10/29/17 Insulin Aspart Prot/Insuln Asp [Novolog Mix 70-30 Flexpen Syrn] 4 unit SQ DAILY 10/29/17 Insulin Glargine,Hum.rec.anlog [Lantus] 50 unit SQ QHS 10/29/17 Losartan Potassium 50 mg PO DAILY 10/29/17 Metoprolol Tartrate [Lopressor 50 mg Tablet] 50 mg PO Q12H 10/29/17 Multivitamin [Daily Multiple Vitamin] 1 tab PO DAILY 10/29/17 [place]-3 Fatty Acids/Fish Oil [Fish Oil 1,000 mg Capsule] 1 each PO DAILY Pantoprazole Sodium 40 mg PO DAILY 10/29/17 Potassium Chloride 10 meq PO DAILY 10/29/17 Sennosides/Docusate Sodium [Stool Softener Tablet] 1 each PO DAILY 10/29/17 Simvastatin 40 mg PO QHS 10/29/17 Levofloxacin [Levaquin 750 mg Tablet] 500 mg PO DAILY #5 tablet 11/15/17 History of Present Illness History of Present Illness: RICKEY MONTANO is a 82 year old female Hospital Course Hospital Course: The patient was admitted with acute hypoxemic respiratory failure. She was started on oxygen unfortunately she has not used her home O2 after her mastectomy and post hospital discharge. The x-ray was possibly consistent with a middle lobe infiltrate. She did quite well with IV antibiotics and IV fluids. She had a one good bowel movement. On the day of discharge she appeared comfortable in no acute distress vital signs stable O2 saturation is 98% on 2 L O2 Physical Exam Vital Signs: Temp Pulse Resp BP Pulse Ox 98.0 F 62 16 139/53 H 98 11/15/17 03:19 11/15/17 07:59 11/15/17 07:59 11/15/17 03:19 11/15/17 07:59 Intake & Output 11/14/17 11/15/17 11/16/17 06:59 06:59 06:59 Intake Total 1358 1581 Output Total 180 30 Balance 1178 1551 Weight 92.3 kg 88.4 kg General appearance: PRESENT: no acute distress Head exam: PRESENT: atraumatic Eye exam: PRESENT: conjunctiva pink Neck exam: ABSENT: carotid bruit, JVD Respiratory exam: PRESENT: rhonchi Cardiovascular exam: PRESENT: RRR, +S1, +S2 Pulses: PRESENT: +1 pedal pulses bilateral GI/Abdominal exam: PRESENT: normal bowel sounds, soft Extremities exam: PRESENT: full ROM Musculoskeletal exam: PRESENT: ambulatory Neurological exam: PRESENT: alert, awake Psychiatric exam: PRESENT: anxious Results Laboratory Results: 11/15/17 04:50 11/15/17 04:50 11/15/17 11/15/17 04:50 04:50 WBC 8.2 RBC 4.11 Hgb 11.5 L Hct 34.1 L MCV 83 MCH 27.9 MCHC 33.7 RDW 14.6 H Plt Count 542 H Seg Neutrophils % 63.4 Lymphocytes % 15.9 Monocytes % 10.1 Eosinophils % 9.5 H Basophils % 1.1 Absolute Neutrophils 5.2 Absolute Lymphocytes 1.3 Absolute Monocytes 0.8 Absolute Eosinophils 0.8 H Absolute Basophils 0.1 Sodium 139.5 Potassium 4.4 Chloride 102 Carbon Dioxide 30 Anion Gap 8 BUN 13 Creatinine 0.73 Est GFR ( Amer) > 60 Est GFR (Non-Af Amer) > 60 Glucose 112 H Calcium 8.9 Phosphorus 4.3 Magnesium 2.3 11/13/17 04:13 NT-Pro-B Natriuret Pep 3060 H Impressions: Chest X-Ray 11/12/17 03:43 IMPRESSION: 1. Right midlung airspace opacity concerning for pneumonia.
[2017-11-15 09:03] VITALS: BP 145/54
[2017-11-15] MEDS: MULTIVITAMIN TABLET PO SCH (09:30)
[2017-11-15] MEDS: OMEGA-3 ACID ETHYL ESTERS 1 GM CAPSULE PO SCH (09:30)
[2017-11-15] MEDS: SENNOSIDES/DOCUSATE 8.6-50 MG 1 EACH TABLET PO SCH (09:31)
[2017-11-15] MEDS: MAGNESIUM OXIDE 400 MG TABLET PO SCH (09:31)
[2017-11-15] MEDS: ALPRAZOLAM 0.5 MG TABLET PO SCH (09:31)
[2017-11-15] MEDS: CALCIUM CARBONATE 500 MG TABLET PO SCH (09:31)
[2017-11-15] MEDS: ASPIRIN 81 MG TABLET, ENT COATED PO SCH (09:31)
[2017-11-15] MEDS: GUAIFENESIN 600 MG TABLET.SA PO SCH (09:32)
[2017-11-15] MEDS: LOSARTAN POTASSIUM 50 MG TABLET PO SCH (09:32)
[2017-11-15] MEDS: LEVOFLOXACIN 750 MG TABLET PO SCH (09:32)
== END 2017-11-15 11:15 | disposition home or self-care (01) | DRG 193 ==
LOC: ER 03:22 → EH 05:41 → 3N 10:00
PROVIDERS: ADMIT Family Medicine; ATTEND Family Medicine
PROC: 3E0F73Z Introduction of Anti-inflammatory into Respiratory Tract, Via Natural or Artificial Opening (ICD-10-PCS; 2017-11-12)
PROC: 5A09357 Assistance with Respiratory Ventilation, Less than 24 Consecutive Hours, Continuous Positive Airway Pressure (ICD-10-PCS; principal; 2017-11-13)
DX: J15.9 Unspecified bacterial pneumonia (principal); J96.01 Acute respiratory failure with hypoxia; I10 Essential (primary) hypertension; I48.91 Unspecified atrial fibrillation; I25.10 Atherosclerotic heart disease of native coronary artery without angina pectoris; E78.5 Hyperlipidemia, unspecified; M15.3 Secondary multiple arthritis; K21.9 Gastro-esophageal reflux disease without esophagitis; E11.9 Type 2 diabetes mellitus without complications; E05.90 Thyrotoxicosis, unspecified without thyrotoxic crisis or storm; C50.912 Malignant neoplasm of unspecified site of left female breast; Z98.49 Cataract extraction status, unspecified eye; I25.2 Old myocardial infarction; Z90.10 Acquired absence of unspecified breast and nipple; Z99.81 Dependence on supplemental oxygen; Z79.4 Long term (current) use of insulin; Z79.82 Long term (current) use of aspirin; Z79.899 Other long term (current) drug therapy; Z91.19 Patient's noncompliance with other medical treatment and regimen; Z85.43 Personal history of malignant neoplasm of ovary; Z90.710 Acquired absence of both cervix and uterus; Z66 Do not resuscitate; Z80.9 Family history of malignant neoplasm, unspecified; Z82.49 Family history of ischemic heart disease and other diseases of the circulatory system; Z88.6 Allergy status to analgesic agent; Z88.0 Allergy status to penicillin; Z90.12 Acquired absence of left breast and nipple; Z86.73 Personal history of transient ischemic attack (TIA), and cerebral infarction without residual deficits
CPT/HCPCS: 36415; 71010; 80048; 80053; 81001; 82962; 83735; 83880; 84100; 84484; 85025; 85610; 87040; 87086; 93005; 93010; 94640; 94799; 96365; 99285; J1644; J1815; J1956; J3490; J7620

== ENCOUNTER → 2017-11-16 | Outpatient (CLI) | payer MEDICARE, OTHER ==
[2017-11-16 14:13] LABS: ABSOLUTE BASOPHILS # (AUTO) 0.1 10^3/uL (0.0-0.2); ABSOLUTE LYMPHOCYTES (AUTO) 1.3 10^3/uL (0.5-4.7); ABSOLUTE NEUT (AUTO) 6.3 10^3/uL (1.7-8.2); BASOPHILS % (AUTO) 1.2 % (0-2); EOSINOPHILS % (AUTO) 10.6 % (0-6); HEMATOCRIT 35.5 % (36.0-47.0); HEMOGLOBIN 12.5 g/dL (12.0-15.5); MEAN CORPUSCULAR HEMOGLOBIN 28.7 pg (27.0-33.4); MEAN CORPUSCULAR HGB CONC 35.1 g/dL (32.0-36.0); MEAN CORPUSCULAR VOLUME 82 fl (80-97); RED BLOOD COUNT 4.34 10^6/uL (3.72-5.28); RED CELL DISTRIBUTION WIDTH 14.9 % (11.5-14.0); SEGMENTED NEUTROPHILS % (AUTO) 65.2 % (42-78); WHITE BLOOD COUNT 9.6 10^3/uL (4.0-10.5)
[2017-11-16 14:35] LABS: ANION GAP 11 (5-19); BLOOD UREA NITROGEN 17 mg/dL (7-20); CALCIUM 9.4 mg/dL (8.4-10.2); CARBON DIOXIDE 24 mmol/L (22-30); CHLORIDE 104 mmol/L (98-107); CREATININE RESULT 0.72 mg/dL (0.52-1.25); POTASSIUM 4.9 mmol/L (3.6-5.0); SODIUM 138.5 mmol/L (137-145)
[2017-11-16 14:40] LABS: GLUCOSE 130 mg/dL (75-110)
== END ==
LOC: OD 13:44
PROVIDERS: ATTEND Surgery
DX: R58 Hemorrhage, not elsewhere classified (principal)
CPT/HCPCS: 36415; 80048; 85025

== ENCOUNTER → 2018-01-06 | Outpatient (CLI) | payer MEDICARE, OTHER ==
--- NOTE | 2018-01-06 16:27 | RADIOLOGY REPORT (SQ) ---
EXAM DESCRIPTION: CHEST PA/LATERAL COMPLETED DATE/TIME: 01/06/2018 4:17 pm REASON FOR STUDY: SHORTNESS OF BREATH COMPARISON: AP CHEST 11/12/2017, 08/11/2016, 08/05/2015 EXAM PARAMETERS: NUMBER OF VIEWS: two views TECHNIQUE: Digital Frontal and Lateral radiographic views of the chest acquired. RADIATION DOSE: NA LIMITATIONS: none FINDINGS: LUNGS AND PLEURA: No opacities, masses or pneumothorax. No pleural effusion. MEDIASTINUM AND HILAR STRUCTURES: Prominent central pulmonary arteries, chronic in appearance HEART AND VASCULAR STRUCTURES: Stable moderate cardiomegaly BONES: No acute findings. HARDWARE: Surgical clips post bilateral mastectomies OTHER: No other significant finding. IMPRESSION: No acute findings TECHNICAL DOCUMENTATION: JOB ID: [id number] [employer]- All Rights Reserved
--- NOTE | 2018-01-06 16:31 | RADIOLOGY REPORT (SQ) ---
EXAM DESCRIPTION: ANKLE LEFT COMPLETE COMPLETED DATE/TIME: 01/06/2018 4:17 pm REASON FOR STUDY: PAIN IN LEFT ANKLE AND JOINTS OF LEFT FOOT M25.572 PAIN IN LEFT ANKLE AND JOINTS OF LEFT FOOT R06.02 SHORTNESS OF BREATH M79.672 PAIN IN LEFT FOOT COMPARISON: 07/15/2015 NUMBER OF VIEWS: Three views. TECHNIQUE: AP, lateral, and oblique without weight bearing radiographic images acquired of the left ankle. LIMITATIONS: None. FINDINGS: MINERALIZATION: Normal. BONES: No acute fracture or dislocation. No worrisome bone lesions. Medial malleolar osteophytes. JOINTS: No effusions. SOFT TISSUES: Soft tissue swelling. OTHER: No other significant finding. IMPRESSION: Medial degenerative changes with soft tissue swelling. TECHNICAL DOCUMENTATION: JOB ID: [id number] [employer]- All Rights Reserved
--- NOTE | 2018-01-06 16:32 | RADIOLOGY REPORT (SQ) ---
EXAM DESCRIPTION: FOOT LEFT COMPLETE COMPLETED DATE/TIME: 01/06/2018 4:17 pm REASON FOR STUDY: PAIN IN LEFT ANKLE AND JOINTS OF LEFT FOOT M25.572 PAIN IN LEFT ANKLE AND JOINTS OF LEFT FOOT R06.02 SHORTNESS OF BREATH M79.672 PAIN IN LEFT FOOT COMPARISON: None. NUMBER OF VIEWS: Three views. TECHNIQUE: AP, lateral and oblique without weight bearing radiographic images acquired of the left f oot. LIMITATIONS: None. FINDINGS: MINERALIZATION: Normal. BONES: No acute fracture or dislocation. No worrisome bone lesions. Degenerative changes 1st MTP join t. JOINTS: No erosions. No yajaira-articular osteopenia. No chondrocalcinosis. SOFT TISSUES: No swelling. No calcifications. OTHER: No other significant finding. 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 TECHNICAL DOCUMENTATION: JOB ID: [id number] [employer]- All Rights Reserved
[2018-01-06 16:39] LABS: ABSOLUTE BASOPHILS # (AUTO) 0.1 10^3/uL (0.0-0.2); ABSOLUTE EOSINOPHILS # (AUTO) 0.4 10^3/uL (0.0-0.6); ABSOLUTE LYMPHOCYTES (AUTO) 1.7 10^3/uL (0.5-4.7); ABSOLUTE MONOCYTES (AUTO) 0.9 10^3/uL (0.1-1.4); ABSOLUTE NEUT (AUTO) 5.7 10^3/uL (1.7-8.2); BASOPHILS % (AUTO) 1.3 % (0-2); EOSINOPHILS % (AUTO) 4.7 % (0-6); HEMATOCRIT 39.6 % (36.0-47.0); HEMOGLOBIN 13.4 g/dL (12.0-15.5); LYMPHOCYTES % (AUTO) 19.7 % (13-45); MEAN CORPUSCULAR HEMOGLOBIN 27.2 pg (27.0-33.4); MEAN CORPUSCULAR HGB CONC 33.9 g/dL (32.0-36.0); MEAN CORPUSCULAR VOLUME 80 fl (80-97); MONOCYTES % (AUTO) 9.8 % (3-13); PLATELET COUNT 608 10^3/uL (150-450); RED BLOOD COUNT 4.93 10^6/uL (3.72-5.28); RED CELL DISTRIBUTION WIDTH 14.7 % (11.5-14.0); SEGMENTED NEUTROPHILS % (AUTO) 64.5 % (42-78); TOTAL CELLS COUNTED % (AUTO) 100 %; WHITE BLOOD COUNT 8.8 10^3/uL (4.0-10.5)
[2018-01-06 17:02] LABS: ANION GAP 11 (5-19); BLOOD UREA NITROGEN 18 mg/dL (7-20); CALCIUM 9.9 mg/dL (8.4-10.2); CARBON DIOXIDE 29 mmol/L (22-30); CHLORIDE 101 mmol/L (98-107); GLUCOSE 105 mg/dL (75-110); POTASSIUM 4.3 mmol/L (3.6-5.0); SODIUM 140.8 mmol/L (137-145); URIC ACID 5.7 mg/dL (2.5-7.5)
== END ==
LOC: OD 15:12
PROVIDERS: ATTEND Family Medicine Geriatric Medicine
DX: M25.572 Pain in left ankle and joints of left foot (principal); M79.672 Pain in left foot; R06.02 Shortness of breath; I25.10 Atherosclerotic heart disease of native coronary artery without angina pectoris; Z79.899 Other long term (current) drug therapy
CPT/HCPCS: 36415; 71046; 80048; 83880; 84550; 85025

== ENCOUNTER → 2018-01-10 | Outpatient (CLI) | payer MEDICARE, OTHER ==
--- NOTE | 2018-01-10 16:59 | RADIOLOGY REPORT (SQ) ---
EXAM DESCRIPTION: CTA CHEST COMPLETED DATE/TIME: 01/10/2018 4:33 pm REASON FOR STUDY: SHORTNESS OF BREATH R06.02 SHORTNESS OF BREATH R79.89 OTHER SPECIFIED ABNORMAL F INDINGS OF BLOOD CHEMISTRY COMPARISON: 04/25/2012. TECHNIQUE: CT scan of the chest performed using helical scanning technique with dynamic intravenous contrast injection. Images reviewed with lung, soft tissue and bone windows. Reconstructed coronal and sagittal MPR images reviewed. Additional 3 dimensional post-processing performed to develop Maximal Intensity Projection images (NV P). All images stored on PACS. All CT scanners at this facility use dose modulation, iterative reconstruction, and/or weight based d osing when appropriate to reduce radiation dose to as low as reasonably achievable (ALARA). [facility]: Dose Right [facility]: CareDose [facility]: Dose Right [facility]: Teradose 4D [facility]: [employer] CONTRAST TYPE AND DOSE: contrast/concentration: Isovue 370.00 mg/ml; Total Contrast Delivered: 71.0 ml; Total Saline Delivered: 110.0 ml Contrast bolus optimized for the pulmonary arteries. Not diagnostic for the aorta. RENAL FUNCTION: BUN 18 creatinine 0.75. RADIATION DOSE: CT Rad equipment meets quality standard of care and radiation dose reduction techniq ues were employed. CTDIvol: 14.7 - 15.0 mGy. DLP: 548 mGy-cm. . LIMITATIONS: None. FINDINGS: LUNGS AND PLEURA: No masses, infiltrates, pneumothorax. No pleural effusions, calcificati ons. AORTA AND GREAT VESSELS: No aneurysm. Contrast bolus not optimized for the aorta. HEART: No pericardial effusion. No significant coronary artery calcifications. PULMONARY ARTERIES: No emboli visualized in the main pulmonary arteries or the segmental branches. HILAR AND MEDIASTINAL STRUCTURES: No identified masses or abnormal nodes. HARDWARE: None in the chest. UPPER ABDOMEN: No significant findings. Limited exam. THYROID AND OTHER SOFT TISSUES: Nodule in the right lobe of the thyroid, unchanged. No adenopathy. BONES: No acute or significant finding. 3D MIPS: Confirm above findings. OTHER: No other significant finding. IMPRESSION: NORMAL CTA OF THE CHEST. NO PULMONARY EMBOLI. COMMENT: Quality ID # [id number]: Final reports with documentation of one or more dose reduction techniques (e.g., Automated exposure control, adjustment of the mA and/or kV according to patient size, use of iterative reconstruction technique) TECHNICAL DOCUMENTATION: JOB ID: [id number] [facility] [employer]- All Rights Reserved
--- NOTE | 2018-01-10 17:23 | XCELERA REPORT ---
[address] [address] Lower Extremity Venous Evaluation Name: RICKEY MONTANO Age: 82 yrs Gender: Female : 1935 Patient Status: Outpatient Patient Location: [facility] Study Date: 01/10/2018 04:35 PM Procedure: Color flow and duplex imaging of the veins of the left lower extremity as well as the right Common Femoral vein. Reason For Study: LLE PAIN Ordering Physician: SANDOVAL VILLANUEVA Performed By: Randa Martin Right Sided Venous Evaluation The right common femoral vein is fully compressible. Spontaneous and phasic flow is present in the right common femoral vein. Left Sided Venous Evaluation Normal vessel filling wall to wall, compression and augmentation as well as Colour flow down to the infrageniculate veins. Interpretation Summary No duplex evidence of DVT or obstruction in the left lower extremity nor in the right Common Femoral vein. : SANDOVAL VILLANUEVA > Steven Munoz
== END ==
LOC: RAD 15:50
PROVIDERS: ATTEND Family Medicine Geriatric Medicine
DX: M25.572 Pain in left ankle and joints of left foot (principal); M79.672 Pain in left foot; R79.89 Other specified abnormal findings of blood chemistry; R06.02 Shortness of breath
CPT/HCPCS: 36415; 71275; 85379; 93971

== ENCOUNTER → 2019-02-06 | Outpatient (CLI) | payer MEDICARE, OTHER ==
[2019-02-06 11:01] LABS: ABSOLUTE BASOPHILS # (AUTO) 0.1 10^3/uL (0.0-0.2); ABSOLUTE EOSINOPHILS # (AUTO) 0.4 10^3/uL (0.0-0.6); ABSOLUTE LYMPHOCYTES (AUTO) 1.1 10^3/uL (0.5-4.7); ABSOLUTE MONOCYTES (AUTO) 0.8 10^3/uL (0.1-1.4); ABSOLUTE NEUT (AUTO) 6.6 10^3/uL (1.7-8.2); BASOPHILS % (AUTO) 1.3 % (0-2); EOSINOPHILS % (AUTO) 4.8 % (0-6); HEMATOCRIT 46.4 % (36.0-47.0); HEMOGLOBIN 15.7 g/dL (12.0-15.5); LYMPHOCYTES % (AUTO) 12.5 % (13-45); MEAN CORPUSCULAR HEMOGLOBIN 26.1 pg (27.0-33.4); MEAN CORPUSCULAR HGB CONC 33.8 g/dL (32.0-36.0); MEAN CORPUSCULAR VOLUME 77 fl (80-97); MONOCYTES % (AUTO) 8.8 % (3-13); PLATELET COUNT 658 10^3/uL (150-450); RED BLOOD COUNT 6.01 10^6/uL (3.72-5.28); RED CELL DISTRIBUTION WIDTH 14.7 % (11.5-14.0); SEGMENTED NEUTROPHILS % (AUTO) 72.6 % (42-78); TOTAL CELLS COUNTED % (AUTO) 100 %; WHITE BLOOD COUNT 9.1 10^3/uL (4.0-10.5)
[2019-02-06 11:26] LABS: ALANINE AMINOTRANSFERASE 23 U/L (9-52); ALBUMIN 4.4 g/dL (3.5-5.0); ALKALINE PHOSPHATASE 73 U/L (38-126); ANION GAP 11 (5-19); ASPARTATE AMINO TRANSFERASE 39 U/L (14-36); BILIRUBIN,DIRECT 0.2 mg/dL (0.0-0.4); BILIRUBIN,TOTAL 0.8 mg/dL (0.2-1.3); BLOOD UREA NITROGEN 16 mg/dL (7-20); CALCIUM 9.9 mg/dL (8.4-10.2); CARBON DIOXIDE 27 mmol/L (22-30); CHLORIDE 101 mmol/L (98-107); CHOLESTEROL 129.46 mg/dL (0-200); GLUCOSE 71 mg/dL (75-110); POTASSIUM 4.7 mmol/L (3.6-5.0); TOTAL PROTEIN 7.1 g/dL (6.3-8.2); TRIGLYCERIDES 146 mg/dL (<150)
[2019-02-06 11:36] LABS: DIRECT LDL 63 mg/dL (<100)
[2019-02-07 12:38] LABS: CREATININE URINE 53.7 mg/dL (Not Estab.); MICROALBUMIN URINE 21.2 ug/mL (Not Estab.)
== END ==
LOC: OD 09:56
PROVIDERS: ATTEND Internal Medicine
DX: E11.9 Type 2 diabetes mellitus without complications (principal); I25.10 Atherosclerotic heart disease of native coronary artery without angina pectoris; E78.5 Hyperlipidemia, unspecified; G47.33 Obstructive sleep apnea (adult) (pediatric); I10 Essential (primary) hypertension
CPT/HCPCS: 36415; 80053; 80061; 82043; 82570; 83036; 83735; 84443; 85025

== ENCOUNTER → 2019-03-14 | Outpatient (CLI) | payer MEDICARE, OTHER ==
[2019-03-14 11:42] LABS: ABSOLUTE BASOPHILS # (AUTO) 0.1 10^3/uL (0.0-0.2); ABSOLUTE EOSINOPHILS # (AUTO) 0.4 10^3/uL (0.0-0.6); ABSOLUTE LYMPHOCYTES (AUTO) 1.2 10^3/uL (0.5-4.7); ABSOLUTE MONOCYTES (AUTO) 0.7 10^3/uL (0.1-1.4); ABSOLUTE NEUT (AUTO) 6.2 10^3/uL (1.7-8.2); BASOPHILS % (AUTO) 0.7 % (0-2); EOSINOPHILS % (AUTO) 4.8 % (0-6); HEMATOCRIT 46.3 % (36.0-47.0); HEMOGLOBIN 15.9 g/dL (12.0-15.5); LYMPHOCYTES % (AUTO) 14.2 % (13-45); MEAN CORPUSCULAR HEMOGLOBIN 26.7 pg (27.0-33.4); MEAN CORPUSCULAR HGB CONC 34.3 g/dL (32.0-36.0); MEAN CORPUSCULAR VOLUME 78 fl (80-97); MONOCYTES % (AUTO) 8.6 % (3-13); PLATELET COUNT 729 10^3/uL (150-450); RED BLOOD COUNT 5.96 10^6/uL (3.72-5.28); RED CELL DISTRIBUTION WIDTH 15.2 % (11.5-14.0); SEGMENTED NEUTROPHILS % (AUTO) 71.7 % (42-78); TOTAL CELLS COUNTED % (AUTO) 100 %; WHITE BLOOD COUNT 8.6 10^3/uL (4.0-10.5)
== END ==
LOC: OD 11:07
PROVIDERS: ATTEND Internal Medicine
DX: R79.89 Other specified abnormal findings of blood chemistry (principal)
CPT/HCPCS: 36415; 85025

== ENCOUNTER → 2019-12-07 | Outpatient (CLI) | payer MEDICARE, OTHER ==
--- NOTE | 2019-12-07 14:21 | RADIOLOGY REPORT (SQ) ---
EXAM DESCRIPTION: CHEST 2 VIEWS COMPLETED DATE/TIME: 12/07/2019 10:49 am REASON FOR STUDY: COUGH (R05), RLL PNEUMONIA (J18.9) COMPARISON: 08/01/2016 EXAM PARAMETERS: NUMBER OF VIEWS: two views TECHNIQUE: Digital Frontal and Lateral radiographic views of the chest acquired. RADIATION DOSE: NA LIMITATIONS: none FINDINGS: LUNGS AND PLEURA: Blunting of the right costophrenic angle. Hyperinflation. No infiltrat e. MEDIASTINUM AND HILAR STRUCTURES: No masses or contour abnormalities. HEART AND VASCULAR STRUCTURES: Stable heart size. No evidence for failure. BONES: No acute findings. HARDWARE: None in the chest. OTHER: Clips overlying right breast and left axilla. IMPRESSION: Cardiomegaly. Trace right pleural effusion. No infiltrate. TECHNICAL DOCUMENTATION: JOB ID: [id number] [employer]- All Rights Reserved Reading location - IP/workstation name: [email or web address]
== END ==
LOC: RAD 10:27
PROVIDERS: ATTEND Internal Medicine
DX: J18.9 Pneumonia, unspecified organism (principal); R05 Cough; I51.7 Cardiomegaly
CPT/HCPCS: 71046

== ENCOUNTER → 2020-10-21 | Outpatient (CLI) | payer MEDICARE, OTHER ==
--- NOTE | 2020-10-21 13:47 | ER [facility] ASSESSMENT REPORT ---
Intake - In the Last 14 days Have you traveled outside [place]?: No Have you been in close contact with someone CONFIRMED: Yes Worked in Healthcare?: No - Symptoms Subjective Fever([place] feverish): No Chills: No Muscule Aches: Yes Runny Nose: Yes Sore Throat: No Cough (New or worsening chronic cough): No Shortness of breath: No Nausea or Vomiting: No Headache: No Abdominal Pain: No Diarrhea(3 or more loose stools in last 24 hours): No - Do you have any of the following Chronic lung disease: Asthma or emphysema or COPD: No Cystic Fibrosis: No Diabetes: Yes High Blood Pressure: Yes Cardiovascular Disease: Yes Chronic Kidney Disease: No Chronic Liver Disease: No Chronic blood disorder like Sickle Cell Disease: No Weak immune system due to disease or medication: No Neurologic condition that limits movement: No Developmental delay - Moderate to Severe: No Recent (within past 2 weeks) or current : No Morbid Obesity (>100 pounds over ideal weight): No - Objective Temperature: 98.7 F Pulse Rate: 75 Respiratory Rate: 18 Blood Pressure: 110/56 O2 Sat by Pulse Oximetry: 99 Objective: Given above, testing performed: If Testing Performed: Test Specimen Type Sent to General - General Information source: Patient Notes: Patient presents to the [facility] for screening for the coronavirus. She does report recent exposure to someone who did test positive. - Related Data Allergies/Adverse Reactions: morphine [Morphine] Allergy (Severe, Verified 10/29/17 09:43) Itch, diaphoresis Penicillins Allergy (Severe, Verified 10/29/17 09:43) Whelts, sickness Past Medical History - General Information source: Patient - Social History Smoking Status: Never Smoker Family History: CAD, Malignancy - Past Medical History Cardiac Medical History: Reports: Hx Atrial Fibrillation, Hx Coronary Artery Disease, Hx Heart Attack - 2001, Hx Hypercholesterolemia, Hx Hypertension Pulmonary Medical History: Denies: Hx Asthma, Hx Bronchitis, Hx COPD, Hx Pneumonia Neurological Medical History: Reports: Hx Cerebrovascular Accident - 10/2011. Denies: Hx Seizures Endocrine Medical History: Reports: Hx Diabetes Mellitus Type 2 Renal/ Medical History: Denies: Hx Peritoneal Dialysis Malignancy Medical History: Reports: Hx Breast Cancer, Hx Ovarian Cancer GI Medical History: Reports: Hx Gastroesophageal Reflux Disease. Denies: Hx Hepatitis, Hx Hiatal Hernia, Hx Ulcer Musculoskeletal Medical History: Reports Hx Arthritis - ALL OVER Infectious Medical History: Denies: Hx Hepatitis Past Surgical History: Reports: Hx Appendectomy, Hx Breast Surgery - L mastectomy 24 yrs ago/11/10/2017 R mastecomy, Hx Cardiac Catheterization - cath and ablation, Hx Cholecystectomy, Hx Hysterectomy, Hx Mastectomy - LEFT CAN'T USE LEFT ARM, Hx Open Heart Surgery - ABLATION 13 PLACES , Hx Orthopedic Surgery - bilateral knee surgery Physical Exam - Notes Notes: The patient was evaluated during the global Covid 19 pandemic, and that diagnosis was suspected/considered upon their initial presentation. Their evaluation, treatment and testing was consistent with current guidelines for patients who present with complaints or symptoms that may be related to Covid 19. Full physical exam could not be performed due to covid 19 isolation protocols. Constitutional: Nontoxic appearance, no acute distress Eyes: Nonicteric, extraocular movements intact, sclera clear ENT: Posterior pharynx without exudate Cardiovascular: Heart rate and rhythm regular, no JVD Respiratory: Breath sounds clear bilaterally, nonlabored breathing, no use of accessory muscles, no tachypnea Gastrointestinal: Abdomen not distended Muculoskeletal: Moves all extremities well Skin: Normal color Neuro: Awake alert oriented Psych: Normal mood and affect Diagnostic Results Laboratory Results: Patient presents with symptoms worrisome for possible Covid 19. Patient does not have emergency worrying symptoms such as difficulty breathing, shortness of breath, chest pain, pressure, confusion or cyanosis. Patient appears suitable for discharge as vital signs are stable and patient is nontoxic in appearance. Good return precautions have been discussed with patient, patient verbalized understanding and is agreeable with discharge plan of care at this time. Patient Education/Counseling Counseling/Education: Patient was provided with discharge information including: As a person under investigation for Covid 19, the [place] department of Health and Human Services, division of public health advises you to adhere to the following guidance until your test results are reported to you. If your test result is positive, you will receive additional information from your provider and your local health department at that time. Remain at home until you are cleared by the health provider or public health authorities. Keep a log of visitors to your home, notify any visitors to your home of your isolation status. If you plan to move to a new address or leave the county, notify the local health department in your County. Call your doctor or seek care if you have an urgent medical need. Before seeking medical care, call ahead to get instructions from the provider before arriving at the medical office clinic or hospital. Notify them that you are being tested for the virus that causes Covid 19 so that arrangements can be made, as necessary, to prevent transmission to others in the healthcare setting. Next, notify the local health department in your county. If a medical emergency arises and you need to call 911, inform the first responders that you are being tested for the virus that causes Covid 19. Next, notify the local health department in your county. [facility] Discharge - Discharge Clinical Impression: Encounter for screening laboratory testing for COVID-19 virus Condition: Stable Disposition: Home; Selfcare
[2020-10-21 14:20] VITALS: BP 110/56
== END ==
LOC: RDC 13:33
PROVIDERS: ATTEND Nurse Practitioner Family
DX: U07.1 COVID-19 (principal)
CPT/HCPCS: 99201; U0003; G0463; C9803; 87635; 99211